=== PATIENT | male | born 1985 | race Caucasian/White ===

== ENCOUNTER 2020-07-22 03:02 | Emergency (ER) | payer OTHER ==
[2020-07-22 04:42] LABS: HEMOGLOBIN 15.9 gm/dl (14.0-17.5); RED BLOOD COUNT 5.01 M/UL (4.20-5.50); WHITE BLOOD COUNT 6.8 K/UL (4.5-11.0)
[2020-07-22 05:00] LABS: BUN/CREATININE RATIO 18 (0-10)
[2020-07-22] MEDS ORDERED: ZOFRAN 4 MG TAB4 MG PO (06:32)
[2020-07-22] MEDS ORDERED: IBUPROFEN800 MG PO (06:32)
[2020-07-22] MEDS ORDERED: COLACE 100MG C100 MG PO (06:32)
== END 2020-07-22 06:40 | disposition home or self-care (01) ==
LOC: ER1 03:02
PROVIDERS: Emergency Medicine
DX: K40.90 Unilateral inguinal hernia, without obstruction or gangrene, not specified as recurrent (principal); F17.200 Nicotine dependence, unspecified, uncomplicated
CPT/HCPCS: 80053; 81001; 83690; 85025; 96374; 96375; 99284; J2270; J2405; Q9967

== ENCOUNTER 2020-10-17 21:33 | Emergency (ER) | payer OTHER ==
[~2020-10-17 21:33] MED LIST: COLACE 100MG C100 MG PO; IBUPROFEN800 MG PO; ZOFRAN 4 MG TAB4 MG PO
[2020-10-18 00:40] LABS: RED BLOOD COUNT 4.97 M/UL (4.20-5.50); WHITE BLOOD COUNT 8.1 K/UL (4.5-11.0)
[2020-10-18 00:48] LABS: BUN/CREATININE RATIO 20 (0-10)
== END 2020-10-18 00:30 | disposition home or self-care (01) ==
LOC: ER1 21:33
PROVIDERS: Family Medicine
DX: R10.9 Unspecified abdominal pain (principal); K40.90 Unilateral inguinal hernia, without obstruction or gangrene, not specified as recurrent; F17.200 Nicotine dependence, unspecified, uncomplicated; Z88.1 Allergy status to other antibiotic agents
CPT/HCPCS: 80053; 81001; 83690; 85025; 96374; 99284; J1885

== ENCOUNTER 2021-12-23 00:23 | Emergency (ER) | payer OTHER ==
[2021-12-23 04:08] LABS: HEMOGLOBIN 15.6 gm/dl (14.0-17.5); RED BLOOD COUNT 4.82 M/UL (4.20-5.50); WHITE BLOOD COUNT 13.2 K/UL (4.5-11.0)
[2021-12-23 04:32] LABS: BUN/CREATININE RATIO 26 (0-10)
[2021-12-23] MEDS ORDERED: ZOFRAN ODT 4 MG4 MG PO (05:29)
[2021-12-23] MEDS ORDERED: BENTYL 20MG TAB20 MG PO (05:29)
[2021-12-23] MEDS ORDERED: IBUPROFEN600 MG PO (05:29)
[2021-12-23] MEDS ORDERED: ACYCLOVIR400 MG PO (05:29)
[2021-12-26 22:11] LABS: CHLAMYDIA TRACHOMATIS, NAA Negative (Negative); NEISSERIA GONORRHOEAE, NAA Negative (Negative)
== END 2021-12-23 05:45 | disposition home or self-care (01) ==
LOC: ER1 00:23
PROVIDERS: Physician Assistant
DX: K40.90 Unilateral inguinal hernia, without obstruction or gangrene, not specified as recurrent (principal); R00.0 Tachycardia, unspecified; I10 Essential (primary) hypertension; F17.210 Nicotine dependence, cigarettes, uncomplicated; Z88.1 Allergy status to other antibiotic agents
CPT/HCPCS: 80053; 81001; 82150; 83605; 83690; 85025; 86694; 87040; 87086; 96374; 96375; 99284; J1885; J2405; Q9967

== ENCOUNTER 2021-12-24 02:47 | Emergency (ER) | payer OTHER ==
[~2021-12-24 02:47] MED LIST changes: +ACYCLOVIR400 MG PO; +BENTYL 20MG TAB20 MG PO; +IBUPROFEN600 MG PO; +ZOFRAN ODT 4 MG4 MG PO
[2021-12-24 03:24] LABS: WHITE BLOOD COUNT 10.4 K/UL (4.5-11.0)
[2021-12-24 03:26] LABS: HEMOGLOBIN 13.5 gm/dl (14.0-17.5); RED BLOOD COUNT 4.16 M/UL (4.20-5.50)
[2021-12-24 03:56] LABS: BUN/CREATININE RATIO 25 (0-10)
== END 2021-12-24 05:45 | disposition left against medical advice (07) ==
LOC: ER1 02:47
PROVIDERS: Student in an Organized Health Care Education/Training Program
DX: S50.812A Abrasion of left forearm, initial encounter (principal); S50.811A Abrasion of right forearm, initial encounter; S60.512A Abrasion of left hand, initial encounter; S60.511A Abrasion of right hand, initial encounter; S00.91XA Abrasion of unspecified part of head, initial encounter; R10.9 Unspecified abdominal pain; R10.819 Abdominal tenderness, unspecified site; M54.2 Cervicalgia; M54.6 Pain in thoracic spine; V89.2XXA Person injured in unspecified motor-vehicle accident, traffic, initial encounter; Y92.410 Unspecified street and highway as the place of occurrence of the external cause
CPT/HCPCS: 36415; 70450; 71260; 72125; 80053; 82550; 82553; 84484; 85025; 90471; 90715; 96374; 99283; J1885; Q9967